=== PATIENT | male | born 1960 | race Hispanic/Latino ===

== ENCOUNTER → 2023-11-22 | Outpatient (CLI) | payer MEDICARE ==
[2023-11-22 08:04] LABS: BASOPHILS # (AUTO) 0.04 K/uL (0.00-0.20); BASOPHILS % (AUTO) 0.6 % (0.0-5.0); EOSINOPHILS # (AUTO) 0.11 K/uL (0.00-0.70); EOSINOPHILS % (AUTO) 1.7 % (0.0-8.0); IMMATURE GRANULOCYTE ABSOLUTE 0.02 K/uL (0-1); LYMPHOCYTES # (AUTO) 2.7 K/uL (1.0-4.8); LYMPHOCYTES % (AUTO) 40.6 % (21.0-51.0); MEAN CORPUSCULAR HEMOGLOBIN 30.2 pg (27.0-33.0); MEAN CORPUSCULAR HGB CONC 33.3 g/dL (32.0-36.0); MEAN CORPUSCULAR VOLUME 90.7 fL (79-99); MONOCYTES # (AUTO) 0.6 K/uL (0.1-1.0); MONOCYTES % (AUTO) 8.8 % (3.0-13.0); NEUTROPHILS # (AUTO) 3.2 K/uL (1.8-7.7); PLATELET COUNT (AUTO) 173 K/uL (130-400); RED BLOOD CELL COUNT(AUTO) 4.63 MIL/uL (4.50-6.20); RED CELL DISTRIBUTION WIDTH 12.6 % (11.0-15.5); WHITE BLOOD COUNT (AUTO) 6.6 K/uL (4.8-10.8)
[2023-11-22 08:26] LABS: ALBUMIN 3.6 g/dL (3.5-5.0); BILIRUBIN,TOTAL 0.6 mg/dL (0.2-1.0); POTASSIUM 3.8 mmol/L (3.5-5.1); TOTAL PROTEIN, SERUM 7.4 g/dL (6.0-8.3)
[2023-11-22 08:30] LABS: INR <= 0.93 (0.85-1.15)
[2023-11-22 08:31] LABS: PARTIAL THROMBOPLASTIN TIME 27.1 SEC (26.3-35.5)
== END | disposition home or self-care (01) ==
LOC: LAB 07:18
PROVIDERS: ATTEND Internal Medicine Gastroenterology
DX: R10.12 Left upper quadrant pain (principal); R12 Heartburn; Z86.010 Personal history of colon polyps
CPT/HCPCS: 36415; 80053; 82150; 83690; 85025; 85610; 85730

== ENCOUNTER 2023-12-06 05:50 | Day surgery (SDC) | payer MEDICARE ==
[~2023-12-06] VITALS: Ht 157.5 cm; Wt 81.6 kg
[2023-12-06] VITALS (11 sets, daily range): BP systolic 133–156; BP diastolic 79–86; PULSE 49–63; RESP 14–16
[2023-12-06] MEDS ORDERED: 0.9%NACL 1000ML 1,000 ML IV ONE (06:41)
[2023-12-06] MEDS ORDERED: PROPOFOL 10 MG/ML 20ML VIAL IV ONE ×2 (07:39)
[2023-12-06] MEDS ORDERED: LIDOCAINE HCL 1% 20 ML VIAL ONE (07:39)
== END 2023-12-06 09:37 | disposition home or self-care (01) ==
LOC: ENDO 05:50 → DAH 05:50 → ENDO 09:37
PROVIDERS: ATTEND Internal Medicine Gastroenterology
DX: Z12.11 Encounter for screening for malignant neoplasm of colon (principal); D12.0 Benign neoplasm of cecum; D12.8 Benign neoplasm of rectum; K57.30 Diverticulosis of large intestine without perforation or abscess without bleeding; K29.50 Unspecified chronic gastritis without bleeding; K22.89 Other specified disease of esophagus; K31.89 Other diseases of stomach and duodenum; K25.9 Gastric ulcer, unspecified as acute or chronic, without hemorrhage or perforation; I10 Essential (primary) hypertension; E78.5 Hyperlipidemia, unspecified; R03.0 Elevated blood-pressure reading, without diagnosis of hypertension; K31.84 Gastroparesis; K44.9 Diaphragmatic hernia without obstruction or gangrene; K80.20 Calculus of gallbladder without cholecystitis without obstruction; R10.12 Left upper quadrant pain; Z86.010 Personal history of colon polyps
CPT/HCPCS: 82948; 43239; 45380; 45385; J7030; J2704 ×2; A4620; A4215 ×2; A4223; A4222; A4221; A4663; A4606; J3490

== ENCOUNTER 2024-03-19 05:51 | Day surgery (SDC) | payer MEDICARE ==
[2024-03-19] VITALS (10 sets, daily range): BP systolic 105–147; BP diastolic 68–89; PULSE 48–63; RESP 12–19; TEMP 97.1–97.9
[~2024-03-19] VITALS: Ht 157.5 cm; Wt 81.2 kg
[2024-03-19] MEDS: 0.9%NACL 1000ML 1,000 ML IV ONE (06:44)
[2024-03-19] MEDS ORDERED: LIDOCAINE HCL 400MG/20ML VIAL ONE (07:35)
[2024-03-19] MEDS ORDERED: proPOFol 10 MG/ML 20ML VIAL IV ONE (07:35)
== END 2024-03-19 08:35 | disposition home or self-care (01) ==
LOC: ENDO 05:51 → DAH 05:51 → ENDO 08:35
PROVIDERS: ATTEND Internal Medicine Gastroenterology
DX: K25.9 Gastric ulcer, unspecified as acute or chronic, without hemorrhage or perforation (principal); K29.50 Unspecified chronic gastritis without bleeding; K31.89 Other diseases of stomach and duodenum; D12.6 Benign neoplasm of colon, unspecified; B96.81 Helicobacter pylori [H. pylori] as the cause of diseases classified elsewhere; K57.30 Diverticulosis of large intestine without perforation or abscess without bleeding; I10 Essential (primary) hypertension; E78.5 Hyperlipidemia, unspecified; Z79.899 Other long term (current) drug therapy
CPT/HCPCS: 43239; J3490; J7030; J2704; A4620; A4215 ×2; A4223; A4222; A4221; A4663; A4606